=== PATIENT | male | born 1955 | race American Indian/Alaskan Native ===

== ENCOUNTER 2016-11-24 07:23 | Outpatient (CLI) | payer BC ==
--- NOTE | 2016-11-24 08:09 | XRay Report ---
CHEST 2 VIEWS INDICATION: Hypertension, ex-smoker. COMPARISON: None similar at this institution. FINDINGS: Frontal and lateral chest radiographs demonstrate slight limited inspiration with normal cardiomediastinal silhouette. Right hemidiaphragm mildly elevated. No pleural effusions or CHF. Osteopenia. CONCLUSION: No acute chest process, as described. Thank you for the opportunity to participate in this patient's care.
== END 2016-11-24 07:24 | disposition home or self-care (01) ==
LOC: XRAY 07:23
PROVIDERS: ATTEND Internal Medicine
DX: I10 Essential (primary) hypertension (principal); M85.80 Other specified disorders of bone density and structure, unspecified site; Q79.1 Other congenital malformations of diaphragm; Z87.891 Personal history of nicotine dependence
CPT/HCPCS: 71020; 93005; 93010

== ENCOUNTER 2019-03-27 12:08 | Outpatient (CLI) | payer BC ==
--- NOTE | 2019-03-27 15:11 | Vascular Lab Report ---
PROCEDURE: VL ARTERIAL DUPLEX LE BILAT TECHNIQUE: Luciano scale, color and pulsed Doppler ultrasound with color flow and spectral analysis eval uation of both lower extremities arteries were performed. Pulse volume recordings and brachial indices obtained. HISTORY: INTERMITTENT CLAUDICATION COMPARISONS: None currently available. FINDINGS: RIGHT EXTREMITY: DIRECTOR MEDICAL, origin SFA, proximal SFA, DFA, mid SFA, distal SFA, proximal popliteal, distal popliteal RN CARDIOV[facility]ULAR ICU, an d ALEXI velocities in cm/sec: 143, 33, 33, 93, 571, 38, 43,,37, 27, and 60. Monophasic flow throughout. Triphasic flow in the deep femoral artery. LEFT EXTREMITY: DIRECTOR MEDICAL, origin SFA, proximal SFA, DFA, mid SFA, distal SFA, proximal popliteal, distal popliteal RN CARDIOVASCULAR ICU, an d ALEXI velocities in cm/sec: 93, 76,, 89, 103, 207, 67, 43, 50, 0, and 13. No flow detected in the pos terior tibial artery. Monophasic flow in the anterior tibial artery. Otherwise biphasic flow in the r emainder of the leg. IMPRESSION: * No flow noted in the left posterior tibial artery. * Greater than 75% stenosis in the right mid SFA. * Greater than 50% stenosis in the left mid SFA and left anterior tibial artery. This document is electronically signed by Romero Esparza MD., Mar 27 2019 03:08:36 PM ET
--- NOTE | 2019-03-27 15:18 | Vascular Lab Report ---
PROCEDURE: VL VENOUS DUPLEX LE RT TECHNIQUE: Luciano scale, color and pulsed Doppler ultrasound with color flow and spectral analysis eval uation of right lower extremity was performed to assess for deep vein thrombosis. HISTORY: RT LOWER EXTREMITY SWELLING/REDNESS AND WARMTH/CONCERN FOR DVT COMPARISONS: None currently available. FINDINGS: RIGHT extremity: Not compressibility noted in the right superficial femoral vein down to the popliteal and into the pe roneal and posterior tibial veins as well as all 4 of the gastrocnemius veins. IMPRESSION: * Acute DVT in the right lower extremity. This document is electronically signed by Romero Esparza MD., Mar 27 2019 03:17:00 PM ET
== END 2019-03-27 12:09 | disposition home or self-care (01) ==
LOC: VAS 12:08
PROVIDERS: ATTEND Internal Medicine
DX: I82.401 Acute embolism and thrombosis of unspecified deep veins of right lower extremity (principal); I10 Essential (primary) hypertension; E66.9 Obesity, unspecified
CPT/HCPCS: 93925

== ENCOUNTER 2019-03-27 14:15 | Inpatient (IN) | payer BC ==
[2019-03-27] MEDS ORDERED: CATAPRES PO ONE (16:03)
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
[2019-03-27 17:50] LABS: Basophils # (Auto) 0.1 K/mm3 (0.0-0.1); Basophils % (Auto) 0.9 % (0.0-1.8); Eosinophils # (Auto) 0.1 K/mm3 (0.0-0.4); Eosinophils % (Auto) 1.9 % (0.0-4.3); Hematocrit 47.2 % (35.5-45.6); Hemoglobin 15.6 gm/dl (11.8-15.2); Lymphocytes % (Auto) 30.3 % (13.4-35.0); Mean Corpuscular HGB Conc 33 % (32-34); Mean Corpuscular Volume 89 fl (84-94); Monocytes # (Auto) 0.4 K/mm3 (0.0-0.8); Monocytes % (Auto) 6.1 % (0.0-7.3); Platelet Count 206 K/mm3 (140-440); Red Blood Count 5.32 M/mm3 (3.65-5.03); Red Cell Distribution Width 13.7 % (13.2-15.2)
[2019-03-27 18:04] LABS: BUN/Creatinine Ratio 10; Blood Urea Nitrogen 8 mg/dL (9-20); Calcium 9.8 mg/dL (8.4-10.2)
[2019-03-27 18:05] LABS: Hemolysis Index 8
[2019-03-27] MEDS ORDERED: LOVENOX SUB-Q ONE (18:10)
[2019-03-27 18:37] LABS: INR 0.97 (0.87-1.13)
[2019-03-27 18:44] LABS: Partial Thromboplastin Time 28.2 Sec. (24.2-36.6)
--- NOTE | 2019-03-27 18:45 | History and Physical Report ---
History of Present Illness Chief complaint: My leg was bothering me History of present illness: 63 YO Male with Obesity, HTN presents to ED for evaluation. Pt states that he has experienced pain and swelling in his right leg over the past 1 month with worsening symptoms over the past 1 week. Pt was seen and evaluated by his PCP and was found to have RLE swelling. Pt was sent to RLE Duplex and was found to have RLE DVT. Pt also acknowledges symptoms consistent with rest pain as well as claudication. Pt denies trauma, BRBPR, CP, Shortness of breath, NVD, Skin rash, hemoptysis, impotence, saddle anesthesia, incontinence, prolonged travel/immobility, Individual/Family history of DVT/PE, or recent ill contacts. Pt instructed to seek further care at [facility] ED. Pt seen and evaluated in ED. Pt initiated on therapeutic lovenox. Vascular surgery consulted in ED. CT Angio RLE ordered in ED and is pending at time of admission. No prior admission for review. All listed medication reconciled at time of admission. Past History Past Medical History: hypertension Past Surgical History: hernia repair, Other (Right knee surgery) Social history: , lives with family Family history: hypertension Medications and Allergies Allergies Allergy/AdvReac Type Severity Reaction Status Date / Time No Known Allergies Allergy Unverified 11/24/16 07:24 Home Medications Medication Instructions Recorded Confirmed Last Taken Type Atenolol [Tenormin] 25 mg PO DAILY 03/27/19 03/27/19 Unknown History Simvastatin 20 mg PO DAILY 03/27/19 03/27/19 Unknown History amLODIPine [Norvasc] 10 mg PO DAILY 03/27/19 03/27/19 Unknown History Review of Systems Constitutional: no weight loss, no weight gain, no fever, no chills Ears, nose, mouth and throat: no ear pain, no ear discharge, no tinnitis, no decreased hearing Cardiovascular: no chest pain, no palpitations, no edema, no lightheadedness Respiratory: no cough, no excessive sputum, no shortness of breath Gastrointestinal: no abdominal pain, no vomiting, no constipation Genitourinary Male: no dysuria, no flank pain, no urinary frequency, no nocturia Rectal: no pain, no incontinence, no itching Musculoskeletal: no neck stiffness, no shooting arm pain, no low back pain, no leg numbness/tingling Integumentary: no rash, no redness, no wounds, no boils Neurological: no head injury, no paralysis Psychiatric: no anxiety, no change in sleep habits, no hypersomnia, no change in libido Endocrine: no cold intolerance, no heat intolerance, no polydipsia, no nocturia Hematologic/Lymphatic: no easy bruising, no easy bleeding, no lymphadenopathy Allergic/Immunologic: no urticaria, no allergic rhinitis, no wheezing Exam - Constitutional Vitals: Temp Pulse Resp BP Pulse Ox 98.2 F 66 18 198/116 99 03/27/19 14:32 03/27/19 14:32 03/27/19 14:32 03/27/19 14:32 03/27/19 14:32 General appearance: Present: mild distress - EENT Eyes: Present: PERRL ENT: hearing intact, clear oral mucosa - Neck Neck: Present: supple, normal ROM - Respiratory Respiratory effort: normal Respiratory: bilateral: CTA - Cardiovascular Heart Sounds: Present: S1 & S2. Absent: rub, click - Extremities Extremities: pulses symmetrical, No edema Extremity abnormal: edema, pulses diminished Peripheral Pulses: within normal limits - Abdominal General gastrointestinal: Present: soft, non-tender, non-distended, normal bowel sounds Male genitourinary: Present: normal - Integumentary Integumentary: Present: clear, warm, dry - Musculoskeletal Musculoskeletal: gait normal, strength equal bilaterally - Psychiatric Psychiatric: appropriate mood/affect, intact judgment & insight - Neurologic Neurologic: CNII-XII intact, moves all extremities Results - Labs CBC & Chem 7: 03/28/19 04:00 03/27/19 17:38 Labs: Abnormal lab results 03/27/19 03/27/19 Range/Units 17:38 17:38 RBC 5.32 H (3.65-5.03) M/mm3 Hgb 15.6 H (11.8-15.2) gm/dl Hct 47.2 H (35.5-45.6) % BUN 8 L (9-20) mg/dL Assessment and Plan - Patient Problems (1) PVD (peripheral vascular disease) with claudication Current Visit: Yes Status: Acute Plan to address problem: ?Vascular surgery consulted in ED, CT Angio RLE, supportive care, serial vascular exam, (2) HTN (hypertension) Current Visit: Yes Status: Acute Qualifiers: Hypertension type: essential hypertension Qualified Code(s): I10 - Essential (primary) hypertension Plan to address problem: Monitor BP q shift, continue medical management (3) Obesity hypoventilation syndrome Current Visit: Yes Status: Acute Plan to address problem: Supplemental oxygen, nebulizer therapy, pulmonary toilet, early ambulation, incentive spirometry, pulse oximetry, (4) Acute deep vein thrombosis (DVT) of right lower extremity Current Visit: Yes Status: Acute Qualifiers: Affected thrombotic vein of extremity: unspecified lower extremity distal vein Qualified Code(s): I82.4Z1 - Acute embolism and thrombosis of unspecified deep veins of right distal lower extremity Plan to address problem: Therapeutic lovenox, Initial dose given in ED, May hold AM dose pending vascular surgery exam and intervention, If no early intervention will resume therapeutic Lovenox around 0800hrs. (5) DVT prophylaxis Current Visit: Yes Status: Acute Plan to address problem: SCD to BLE while in bed, continue therapeutic lovenox,
[2019-03-27] MEDS ORDERED: CATAPRES ONE (18:46)
[2019-03-27] MEDS ORDERED: ZOFRAN IV PRN (18:47)
[2019-03-27] MEDS ORDERED: PERCOCET 5/325 PO PRN (18:47)
[2019-03-27] MEDS ORDERED: TYLENOL PO PRN (18:47)
[2019-03-27] MEDS ORDERED: SODIUM CHLORIDE FLUSH SYRINGE 10 ML IV PRN (18:47)
[2019-03-27] MEDS ORDERED: APRESOLINE IV PRN (21:32)
[2019-03-27] MEDS: SODIUM CHLORIDE FLUSH SYRINGE 10 ML IV SCH (21:50)
[2019-03-27] MEDS ORDERED: PRAVACHOL PO SCH (22:00)
--- NOTE | 2019-03-27 23:25 | Cat Scan Report ---
PROCEDURE: CT ANGIO LOWER EXTREMITY RT TECHNIQUE: Computerized tomographic angiography of the right lower extremity was performed after the IV injection of iodinated nonionic contrast including image processing. The image data was postproc essed using 2-dimensional multiplanar reformatted (MPR) and 3-dimensional (MIP and/or volume rendered ) techniques. CT DOSE LENGTH PRODUCT: 1571 mGycm HISTORY: claudication COMPARISONS: None . FINDINGS: Visualized bilateral iliac arteries do not demonstrate any significant stenosis. 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 Mild degree of plaque formation is noted involving the right common femoral artery without any signif icant stenosis. Profunda femoris is patent. Moderate to severe degree stenotic lesions are noted invo lving right mid to distal SFA. Popliteal artery does not demonstrate any significant stenosis. Anteri or tibial artery is occluded at the origin. There is reconstitution of the dorsalis pedis via collate rals. Common tibial-peroneal trunk demonstrates mild degree stenosis. Posterior tibial and peroneal a rteries are patent. IMPRESSION: Significant peripheral arterial disease involving superficial femoral and anterior tibial arteries. This document is electronically signed by Brayan Gonzalez MD., Mar 27 2019 11:23:33 PM ET
[2019-03-28 07:26] LABS: Basophils % (Auto) 0.9 % (0.0-1.8); Eosinophils # (Auto) 0.1 K/mm3 (0.0-0.4); Eosinophils % (Auto) 2.5 % (0.0-4.3); Hematocrit 43.5 % (35.5-45.6); Hemoglobin 14.5 gm/dl (11.8-15.2); Lymphocytes # (Auto) 2.1 K/mm3 (1.2-5.4); Lymphocytes % (Auto) 39.5 % (13.4-35.0); Mean Corpuscular HGB Conc 33 % (32-34); Mean Corpuscular Volume 90 fl (84-94); Monocytes # (Auto) 0.3 K/mm3 (0.0-0.8); Monocytes % (Auto) 6.1 % (0.0-7.3); Platelet Count 191 K/mm3 (140-440); Red Blood Count 4.86 M/mm3 (3.65-5.03); Red Cell Distribution Width 14.1 % (13.2-15.2)
[2019-03-28 07:26] LABS: Alanine Aminotransferase 21 units/L (7-56); Albumin 3.9 g/dL (3.9-5); BUN/Creatinine Ratio 12; Blood Urea Nitrogen 11 mg/dL (9-20); Calcium 9.1 mg/dL (8.4-10.2); Hemolysis Index 33
--- NOTE | 2019-03-28 09:43 | Consultation ---
History of Present Illness - Reason for Consult Consult date: 03/28/19 RLE DVT, BLE PAD Requesting physician: LISA HAMILTON - History of Present Illness This pt is a 63yo AAM admitted 03/27/19 due to RLE DVT. He reports a 4-6 week h/o RLE pain and swelling. This did not improve therefore he went to his PCP. His Dr ordered an outpt Venous and Arterial duplex which revealed an Acute RLE DVT (SFV,Pop, and calf veins), as well as bilateral lower ext PAD (right mid SFA s tenosis >75%, Left mid SFA and ALEXI stenosis >50%, and L [employer] was reported as out). The pt reports traveling to [place] around this time. He is unaware of any trauma. He denies any recent weight loss, hemoptysis, hematuria, or bleeding with bowel movements. He has had an increase of dyspnea on exertion over this same time span. He reports SOB when walking up stairs which is unusual for him. He reports claudication symptoms when he walks significant distances, primarily on the right. This has only become noticeable since then onset of RLE swelling. Past History Past Medical History: hypertension, hyperlipidemia Past Surgical History: hernia repair (LIH), Other (Right knee surgery) Social history: , lives with family, other (works in [employer]). denies: smoking (quit smoking ~20yrs ago) Family history: hypertension, other (He believes his sister may have from a blood clot while in the hospital with cancer.) Medications and Allergies Allergies Allergy/AdvReac Type Severity Reaction Status Date / Time No Known Allergies Allergy Unverified 11/24/16 07:24 Home Medications Medication Instructions Recorded Confirmed Last Taken Type Atenolol [Tenormin] 25 mg PO DAILY 03/27/19 03/27/19 Unknown History Simvastatin 20 mg PO DAILY 03/27/19 03/27/19 Unknown History amLODIPine [Norvasc] 10 mg PO DAILY 03/27/19 03/27/19 Unknown History Active Meds: Active Medications Acetaminophen (Tylenol) 650 mg PO Q4H PRN PRN Reason: Pain MILD(1-3)/Fever >100.5/CASTANEDA Amlodipine Besylate (Norvasc) 10 mg PO DAILY LUIS Atenolol (Tenormin) 25 mg PO DAILY LIUS Enoxaparin Sodium (Lovenox) 120 mg SUB-Q BID [facility] Hydralazine HCl (Apresoline) 10 mg IV Q8H PRN PRN Reason: Hypertension Ondansetron HCl (Zofran) 4 mg IV Q8H PRN PRN Reason: Nausea And Vomiting Oxycodone/Acetaminophen (Percocet 5/325) 1 tab PO Q6H PRN PRN Reason: Pain, Moderate (4-6) Pravastatin Sodium (Pravachol) 40 mg PO QHS [facility] Last Admin: 03/27/19 21:50 Dose: 40 mg Documented by: Sodium Chloride (Sodium Chloride Flush Syringe 10 Ml) 10 ml IV BID [facility] Last Admin: 03/27/19 21:50 Dose: 10 ml Documented by: Sodium Chloride (Sodium Chloride Flush Syringe 10 Ml) 10 ml IV PRN PRN PRN Reason: LINE FLUSH Review of Systems All systems: negative Exam - Constitutional Vitals: Temp Pulse Resp BP Pulse Ox 97.6 F 53 L 20 174/93 96 03/28/19 06:40 03/28/19 06:40 03/28/19 06:40 03/28/19 06:40 03/28/19 06:40 General appearance: Present: no acute distress - EENT Eyes: Present: EOM intact ENT: hearing intact - Neck Neck: Present: supple - Respiratory Respiratory effort: normal (at rest on room air) - Extremities Extremities: no ischemia, normal temperature Extremity abnormal: edema (pitting edema at the foot of the right lower ext), pulses diminished (unable to palpate pedal pulses on the right, though this may be due to the increased edema. Unable to palpate a Dp on the left, but the PT is palpable.) - Psychiatric Psychiatric: appropriate mood/affect, intact judgment & insight, cooperative - Neurologic Neurologic: no focal deficits Results - Labs CBC & Chem 7: 03/28/19 04:00 03/27/19 17:38 Labs: Abnormal lab results 03/27/19 03/27/19 03/28/19 Range/Units 17:38 17:38 04:00 RBC 5.32 H (3.65-5.03) M/mm3 Hgb 15.6 H (11.8-15.2) gm/dl Hct 47.2 H (35.5-45.6) % Lymph % (Auto) 39.5 H (13.4-35.0) % BUN 8 L (9-20) mg/dL CT ANGIO LOWER EXTREMITY RT IMPRESSION: Significant peripheral arterial disease involving superficial femoral and anterior tibial arteries. VL arterial duplex LE BILAT IMPRESSION: * No flow noted in the left posterior tibial artery. * Greater than 75% stenosis in the right mid SFA. * Greater than 50% stenosis in the left mid SFA and left anterior tibial artery. VL VENOUS DUPLEX LE RT FINDINGS: RIGHT extremity: Not compressibility noted in the right superficial femoral vein down to the popliteal and into the peroneal and posterior tibial veins as well as all 4 of the gastrocnemius veins. IMPRESSION: * Acute DVT in the right lower extremity. Assessment and Plan This pt has a 4-6 week h/o RLE pain and swelling. He was traveling near the time of onset, which likely resulted in a provoked RLE DVT. He has been started on anticoagulation with lovenox. This will need to be convert to an oral agent prior to discharge (consider a DOAC such as Eliquis). He reports SAUCEDO with climbing stairs since the onset of leg symptoms. Would consider CTA of the chest to evaluate for PE. Unlikely to change type of therapy, but may effect the duration of treatment. Recommend aggressive lower ext elevation and potentially support hose to treat his swelling. This will likely improve his discomfort as well. Proper technique discussed. He has underlying PAD, though this appears chronic and only mildly life limiting at this time. I encouraged him to f/u as an outpt to be further worked up as he recovers from his DVT. We discussed the signs and symptoms of PAD, and the need to f/u more urgently should he have difficulty healing wounds. - Patient Problems (1) Acute deep vein thrombosis (DVT) of right lower extremity Current Visit: Yes Status: Acute Qualifiers: Affected thrombotic vein of extremity: unspecified lower extremity distal vein Qualified Code(s): I82.4Z1 - Acute embolism and thrombosis of unspecified deep veins of right distal lower extremity (2) SAUCEDO (dyspnea on exertion) Current Visit: Yes Status: Acute (3) PVD (peripheral vascular disease) with claudication Current Visit: Yes Status: Acute (4) HTN (hypertension) Current Visit: Yes Status: Acute Qualifiers: Hypertension type: essential hypertension Qualified Code(s): I10 - Essential (primary) hypertension (5) Obesity hypoventilation syndrome Current Visit: Yes Status: Acute
[2019-03-28] MEDS ORDERED: TENORMIN PO SCH (10:00)
[2019-03-28] MEDS ORDERED: LOVENOX SUB-Q SCH (10:00)
[2019-03-28] MEDS ORDERED: NORVASC PO SCH (10:00)
[2019-03-28] MEDS: SODIUM CHLORIDE FLUSH SYRINGE 10 ML IV SCH (10:53)
--- NOTE | 2019-03-28 12:11 | Discharge Summary ---
Providers - Providers Date of Admission: 03/27/19 18:47 Date of discharge: 03/28/19 Attending physician: HOLA BARRAZA 03/27/19 19:33 Consult to Physician [CONS] Routine Comment: Consulting Provider: COMPA GEORGE Physician Instructions: Reason For Exam: PVD Primary care physician: GABRIELLE CHAN Hospitalization Condition: Fair Pertinent studies: LE CTA Hospital course: 63 YO Male with Obesity, HTN presents to ED for evaluation of pain and swelling in his right leg over the past 1 month with worsening symptoms. Pt was seen and evaluated by his PCP and was sent to RLE venous Duplex and was found to have RLE DVT. Pt also acknowledged symptoms consistent with rest pain as well as claudication. Pt was instructed to seek further care at [facility] ED. Pt seen and evaluated in ED, initiated on therapeutic lovenox, Vascular surgery consulted in ED, CT Angio RLE ordered, he was admitted for further evaluation and management. Discharge diagnosis: (1) PVD (peripheral vascular disease) with claudication Vascular surgery consulted in ED, s/p CT Angio RLE, will cont outpt followup (2) HTN (hypertension) Monitored BP q shift, continue medical management (3) HLD, continue statin (4) Acute deep vein thrombosis (DVT) of right lower extremity Therapeutic lovenox, Initial dose given in ED, changed to eliquis on discharge Disposition: DC-01 TO HOME OR SELFCARE Time spent for discharge: 34 minutes Core Measure Documentation - Palliative Care Palliative Care/ Comfort Measures: Not Applicable - Core Measures Any of the following diagnoses?: none Exam - Physical Exam Narrative exam: General appearance: Present: no acute distress - EENT Eyes: Present: EOM intact ENT: hearing intact - Neck Neck: Present: supple - Respiratory Respiratory effort: normal (at rest on room air) - Extremities Extremities: no ischemia, normal temperature Extremity abnormal: edema (pitting edema at the foot of the right lower ext), pulses diminished (unable to palpate pedal pulses on the right, though this may be due to the increased edema). - Psychiatric Psychiatric: appropriate mood/affect, intact judgment & insight, cooperative - Neurologic Neurologic: no focal deficits - Constitutional Vitals: Temp Pulse Resp BP Pulse Ox 97.6 F 53 L 20 172/84 97 03/28/19 06:40 03/28/19 06:40 03/28/19 06:40 03/28/19 09:38 03/28/19 09:42 Plan Activity: advance as tolerated Weight Bearing Status: Non-Weight Bearing Diet: low fat, low salt Follow up with: GABRIELLE CHAN MD [Primary Care Provider] - 7 Days Prescriptions: Apixaban [Eliquis] 10 mg PO Q12HR #14 tablet Apixaban [Eliquis] 5 mg PO Q12HR #60 tablet
[2019-03-28] MEDS ORDERED: ELIQUIS PO SCH (12:30)
[2019-03-28 12:50] VITALS: BP 153/97
[2019-04-04] MEDS ORDERED: ELIQUIS PO SCH (10:00)
== END 2019-03-28 14:32 | disposition home or self-care (01) | DRG 300 ==
LOC: ED 14:15 → 3A 18:47
PROVIDERS: ADMIT Internal Medicine; ATTEND Internal Medicine
DX: I82.4Z1 Acute embolism and thrombosis of unspecified deep veins of right distal lower extremity (principal); E66.2 Morbid (severe) obesity with alveolar hypoventilation; I10 Essential (primary) hypertension; I70.211 Atherosclerosis of native arteries of extremities with intermittent claudication, right leg; E78.5 Hyperlipidemia, unspecified; Z82.49 Family history of ischemic heart disease and other diseases of the circulatory system; Z79.899 Other long term (current) drug therapy; Z68.28 Body mass index [BMI] 28.0-28.9, adult
CPT/HCPCS: 36415; 80048; 80053; 85025; 85610; 85730; 96372; G0378; A9270-GY; J1650; Q9967